=== PATIENT | male | born 1955 | race Caucasian/White ===

== ENCOUNTER 2020-02-05 07:57 | Outpatient (CLI) | payer MEDICARE, OTHER, SELFPAY ==
[2020-02-05] MEDS: iohexol 300 mg/mL 50 mL Btl PO (08:52)
--- NOTE | 2020-02-05 09:30 | CT_ITS ---
WS: [id number] CT ABDOMEN PELVIS TECHNIQUE: Contrast-enhanced CT of the abdomen and pelvis with coronal and sagittal reformatted image s. CLINICAL INFORMATION: abdominal pain COMPARISON: CT October 02, 2009 and . DLP: 1111.[address] scans at [facility] use at least one of these dose optimization techniques: automat ed exposure control; mA and/or kV adjustment per patient size (includes targeted exams where dose is matched to clinical indication); or iterative reconstruction. FINDINGS: Prior postoperative changes cholecystectomy. Several incidental hepatic cysts. Some of these are too small to characterize but most compatible with hepatic cysts. Some of these were present in 2009. Spl een appears normal. Small esophageal hiatal hernia progressed since 2009 Adrenal glands are normal. Normal renal parenchymal enhancement. Small bilateral renal cysts. No hydr onephrosis. Normal caliber abdominal aorta. Aortic calcification. Moderate atheromatous disease. Urine distended bladder. Normal sigmoid colon. Moderate colonic constipation. Prominent calcified prostate measuring 4.3 x 3.1 CM. No inguinal or pelvic lymphadenopathy. Tiny incidental fat-containing left inguinal her lisa. Tiny fat-containing supraumbilical hernia. No herniated bowel. Hernia mouth measures approximate ly 6 to 7 mm. Lung bases are well aerated. CT/CT abdomen pelvis w con* [id number] IMPRESSION: 1. Tiny supraumbilical hernia fat-containing hernia with a tiny hernia mouth m easuring 6 to 7 mm. No herniated bowel. 2. Tiny fat-containing left inguinal hernia. 3. A few incidental hepatic and renal cysts. 4. Small esophageal hiatal hernia appears progressed since 2009. 5. Normal caliber abdominal aorta with moderate atheromatous disease. 6. Urine distended bladder with prominent prostate measuring 4.3 x 2.1 CM. Rec ommend correlation PSA.
[2020-02-05 10:01] LABS: Blood Urea Nitrogen 8 mg/dL (8-23)
[2020-02-05] MEDS: iohexol 300 mg/mL 100 mL Btl IV (10:16)
== END 2020-02-05 07:58 | disposition home or self-care (01) ==
PROVIDERS: Family Provider Family Medicine; PCP Family Medicine; Visit Provider Surgery
DX: R10.9 Unspecified abdominal pain (principal); K43.9 Ventral hernia without obstruction or gangrene; K40.90 Unilateral inguinal hernia, without obstruction or gangrene, not specified as recurrent; Q61.02 Congenital multiple renal cysts; K76.89 Other specified diseases of liver; K44.9 Diaphragmatic hernia without obstruction or gangrene; I70.0 Atherosclerosis of aorta; N40.0 Benign prostatic hyperplasia without lower urinary tract symptoms
CPT/HCPCS: 74177; 82565; 84520; Q9967

== ENCOUNTER 2020-03-07 14:17 | Outpatient (CLI) | payer MEDICARE, OTHER, SELFPAY | END 2020-03-07 14:18 | disposition home or self-care (01) | LOC: LAB 14:20 | PROVIDERS: Family Provider Family Medicine; PCP Family Medicine; Visit Provider Surgery | DX: R33.9 Retention of urine, unspecified (principal) | CPT/HCPCS: 84153 ==

== ENCOUNTER 2020-03-23 06:29 | Day surgery (SDC) | payer MEDICARE, OTHER, SELFPAY ==
[2020-03-21 11:23] VITALS: BMI 23.7
[2020-03-23 06:58] VITALS: BP 108/68; PULSE 67; RESP 18; TEMP 36.4; O2SAT 94
[2020-03-23] MEDS: sodium chloride 0.9% 1,000 ML 30 ML IV (07:08)
--- NOTE | 2020-03-23 07:35 | ANES.PREANE2 ---
Pre-Anesthetic Assessment Pre-Anesthetic Assessment: Height/Weight: Height 1.85 m Weight 81.647 kg Temp Pulse Resp BP Pulse Ox 97.6 F 67 18 108/68 94 03/23/20 06:58 03/23/20 06:58 03/23/20 06:58 03/23/20 06:58 03/23/20 06:58 Preop Diagnosis: Occult blood in stool Proposed Procedure: Operation Date: 03/23/20 08:00 Proposed Procedures p Colonoscopy 29199 K62.5(Not Applicable) - Estuardo Lawrence MD Was Beta Jose taken within 24 hours: Yes Last intake: Intake Last Liquid Date 03/22/20 Last Liquid Time 20:30 Last Solid Date 03/22/20 Last Solid Time 07:00 Social: Social History: Tobacco Exam: Pre-Anes Outpt Exam: alert, oriented x 3, clear to auscultation bilaterally and regular rate & rhythm Airway: Submandibular: WNL Cervical ROM: WNL MP: 2 History/ROS: No significant history except as noted Pulmonary: Pulmonary: Sleep apnea CV/HEM: CV/HEM: Arrythmia (defibrilator (placed for irregular rhythm) last shock 1 year ago with exertion ), HTN and WA (stent X3) : : None reported Hepatic: Hepatic: None reported GI: GI: None reported Metabolic: Metabolic: None reported Musc/skel: Musc/skel: OA/DJD Neuropsych: Neuropsych: Seizure Anesthetic Plan: ASA status: 3 Anesthesia: Anesthesia Evaluation and MAC Risk of > 500 ml blood loss (7ml/kg in children): No Meds/Allergies Current Medications: Current Medications Generic Name Dose Route Start Last Admin Trade Name Freq PRN Reason Stop Dose Admin Sodium Chloride 1,000 mls @ 30 ml s/hr 03/23/20 06:45 03/23/20 07:08 Sodium Chloride 0.9% IV 03/24/20 06:44 30 mls/hr .Q24H MISSY Administration PFSH Anesthesia PFSH: Medical History (Updated 02/29/20 @ 09:30 by Estuardo Lawrence MD) Cardiac defibrillator in place Hernia Hypertension Seizure Surgical History History of cholecystectomy Family History Other Bleeding disorder Denies family history of Anesthesia complication Social History Smoking and tobacco status: current some day smoker Data Anesthesia Cardiac Studies: No Data to Display
--- NOTE | 2020-03-23 08:07 | W.PM.OPSUD ---
Surgery/Procedure H&P Update DATE OF PROCEDURE: March 23, 2020 DATE H&P PERFORMED: 02/29/20 H&P UPDATE INFORMATION: I have reviewed H&P completed within last 30 days, I have examined patient prior to procedure and No changes to prior documentation PREOP DIAGNOSIS: Occult blood in stool PRIMARY INDICATION FOR PROCEDURE: The same PLANNED PROCEDURE: Operation Date: 03/23/20 08:00 Proposed Procedures p Colonoscopy 81547 K62.5(Not Applicable) - Estuardo Lawrence MD
[2020-03-23 08:32] VITALS: BP 82/51; PULSE 60; RESP 16; TEMP 36.4; O2SAT 98
[2020-03-23 08:55] VITALS: BP 126/77; PULSE 60; RESP 18; O2SAT 97
== END 2020-03-23 09:00 | disposition home or self-care (01) ==
PROVIDERS: PCP Family Medicine; Visit Provider Surgery
PROC: 0DJD8ZZ Inspection of Lower Intestinal Tract, Via Natural or Artificial Opening Endoscopic (ICD-10-PCS; CPT 45378; principal; 2020-03-23 08:00)
DX: K92.1 Melena (principal); G47.30 Sleep apnea, unspecified; M19.90 Unspecified osteoarthritis, unspecified site; I10 Essential (primary) hypertension; F17.210 Nicotine dependence, cigarettes, uncomplicated
CPT/HCPCS: 12345; 45378; J2704; J7030

== ENCOUNTER → 2021-07-18 11:07 | Outpatient (BNVA) | payer MEDICARE, SELFPAY | PROVIDERS: PCP Family Medicine; Visit Provider Internal Medicine | DX: Z20.822 Contact with and (suspected) exposure to COVID-19 (principal); Z01.812 Encounter for preprocedural laboratory examination | CPT/HCPCS: 87635 ==